=== PATIENT | female | born 1950 | race Caucasian/White ===

== ENCOUNTER 2022-06-15 10:26 | Emergency (ER) | payer MEDICARE, OTHER ==
[2022-06-15] MEDS ORDERED: Sodium Chloride 0.9% 1,000 ML IV ONE (10:50)
[2022-06-15] MEDS ORDERED: Sodium Chloride 0.9% 10 ML Syringe FLUSH PRN (10:50)
[2022-06-15] MEDS ORDERED: Sodium Chloride 0.9% 2.5 ML Syringe FLUSH PRN (10:50)
[2022-06-15] MEDS ORDERED: Scopolamine 1.5 MG Transdermal Patch TRDERM STA (11:44)
[2022-06-15 12:11] LABS: CARBON DIOXIDE,CO2 30.8 mmol/L (21.0-32.0); POTASSIUM,K 4.1 mmol/L (3.5-5.1)
== END 2022-06-15 12:42 | disposition home or self-care (01) ==
LOC: EDBD → MERGE 10:26 → MW.ED 10:26
DX: R42 Dizziness and giddiness (principal); I25.10 Atherosclerotic heart disease of native coronary artery without angina pectoris; I10 Essential (primary) hypertension; J44.9 Chronic obstructive pulmonary disease, unspecified; Z88.0 Allergy status to penicillin; Z88.2 Allergy status to sulfonamides; Z79.899 Other long term (current) drug therapy
CPT/HCPCS: 36415; 71045; 80053; 84484; 85025; 93005; 96360; 99284; A9270; J3490; J7030